=== PATIENT | female | born 1960 | race Caucasian/White ===

== ENCOUNTER 2016-12-20 07:17 | Day surgery (SDC) | payer BC ==
[~2016-12-20] VITALS: Ht 152.4 cm; Wt 80.0 kg
[2016-12-20] VITALS (7 sets, daily range): BP systolic 120–139; BP diastolic 59–76
--- NOTE | 2016-12-20 06:15 | NUR ---
PT CALLS TO REPORT SHE WILL BE LATE. STATES SHE OVERSLEPT AND IT WILL TAKE HER 45 MINUTES TO GET TO THE HOSPITAL.
--- NOTE | 2016-12-20 07:15 | NUR ---
PATIENT REPORTS TO [facility]. EDUCATED THAT THERE WILL BE ANOTHER PROCEDURE BEFORE HERS. PATIENT REPORTS STOOL IS NOT LIQUID.
[~2016-12-20 07:17] MED LIST: ALFENTANIL 500 MCG/ML (ALFENTA) 5 ML AMP IV ONE; LACTATED RINGERS 1,000 ML IV SCH; MIDAZOLAM 2 MG/2 ML (VERSED) VIAL ONE; PROPOFOL 20 ML IV ONE; SODIUM CHLORIDE FLUSH 3 ML SYR IV PRN
--- NOTE | 2016-12-20 07:30 | NUR ---
PATIENT SOLID STOOL REPORTED TO DR. ZHU. NEW ORDER RECEIVED.
--- NOTE | 2016-12-20 07:46 | NUR ---
PT UP TO RESTROOM FOR ENEMA. INSTRUCTED TO USE ENTIRE BOTTLE AND HOLD IN LONG POSSIBLE. PATIENT VERBALIZES UNDERSTANDING.
[2016-12-20] MEDS ORDERED: PROPOFOL 20 ML IV ONE (10:00)
== END 2016-12-20 13:20 | disposition home or self-care (01) ==
LOC: ASC 07:17
PROVIDERS: ATTEND Surgery
DX: K62.5 Hemorrhage of anus and rectum (principal); K62.1 Rectal polyp; K63.5 Polyp of colon; E78.5 Hyperlipidemia, unspecified; G47.33 Obstructive sleep apnea (adult) (pediatric); F32.9 Major depressive disorder, single episode, unspecified; Z86.010 Personal history of colon polyps
CPT/HCPCS: 45380; 45381; 45385; J2250; J7120